=== PATIENT | female | born 1975 | race Caucasian/White ===

== ENCOUNTER 2019-05-01 19:05 | Emergency (ER) | payer MEDICAID ==
[2019-05-01] MEDS ORDERED: Doxycycline 100 MG Tab PO ONE (19:06)
--- NOTE | 2019-05-01 19:15 | EDM.PDOC ---
ED HPI GENERAL MEDICAL PROBLEM - General Chief Complaint: Lower Extremity Injury/Pain Stated Complaint: "My right foot hurts" Time Seen by Provider: 05/01/19 19:08 Source of Information: Reports: Patient History Limitations: Reports: No Limitations - History of Present Illness INITIAL COMMENTS - FREE TEXT/NARRATIVE: This patient is a 43 year old female that presents to the ER. Patient reports one week ago she was having right knee pain. She then reports yesterday she started having right foot pain in the great toe area. Patient reports that it hurts to walk. Patient denies injury. Patient denies n, v, d, f. She does report swelling and redness to the right foot area. Onset Date: 04/30/19 Front/Back Body Image: 1 - heat, swelling, mild redness, tender. Quality: Reports: Throbbing Severity: Moderate Improves with: Reports: None, Immobilization Worsens with: Reports: Movement Associated Symptoms: Denies: Confusion, Chest Pain, Cough, cough w sputum, Diaphoresis, Fever/Chills, Headaches, Loss of Appetite, Malaise, Nausea/Vomiting , Rash, Seizure, Shortness of Breath, Syncope, Weakness - Related Data Allergies Allergy/AdvReac Type Severity Reaction Status Date / Time grape Allergy Anaphylactic Verified 05/01/19 19:46 Shock Review of Systems - Review of Systems Review Of Systems: See Below Constitutional: Reports: No Symptoms Eyes: Reports: No Symptoms Ears: Reports: No Symptoms Nose: Reports: No Symptoms Mouth/Throat: Reports: No Symptoms Respiratory: Reports: No Symptoms Cardiovascular: Reports: No Symptoms GI/Abdominal: Reports: No Symptoms Genitourinary: Reports: No Symptoms Musculoskeletal: Reports: Leg Pain (left lower, with left knee pain. ), Foot Pain (left) Skin: Reports: No Symptoms Neurological: Reports: No Symptoms Psychiatric: Reports: No Symptoms ED EXAM, GENERAL - Physical Exam Exam: See Below Exam Limited By: No Limitations General Appearance: Alert, WD/WN, No Apparent Distress Eye Exam: Bilateral Eye: Normal Inspection, PERRL Ears: Normal External Exam, Normal Canal, Hearing Grossly Normal, Normal TMs Ear Exam: Bilateral Ear: Auricle Normal, Canal Normal, TM normal Nose: Normal Inspection, Normal Mucosa, No Blood Throat/Mouth: Normal Inspection, Normal Lips, Normal Teeth, Normal Gums, Normal Oropharynx, Normal Voice, No Airway Compromise Head: Atraumatic, Normocephalic Neck: Normal Inspection, Supple, Non-Tender, Full Range of Motion Respiratory/Chest: No Respiratory Distress, Lungs Clear, Normal Breath Sounds, No Accessory Muscle Use Cardiovascular: Normal Peripheral Pulses, Regular Rate, Rhythm, No Edema, No Gallop, No JVD, No Murmur, No Rub Peripheral Pulses: 2+: Radial (L), Radial (R), Posterior Tibial (L), Posterior Tibial (R), Dorsalis Pedis (L), Dorsalis Pedis (R) (Female) Exam: Deferred Rectal (Female) Exam: Deferred Back Exam: Normal Inspection, Full Range of Motion Extremities: No Pedal Edema, Joint Swelling (left greater toe), Limited Range of Motion (right greater toe due to swelling and pain), Redness (redness, heat, swelling, tenderness to the left distal metatarsal 5th joint at greater toe. Possibly consistent with gouty arthritis. ) Neurological: Alert, Oriented Psychiatric: Normal Affect, Normal Mood Skin Exam: Warm, Dry, Intact, Normal Color, No Rash Lymphatic: No Adenopathy Course - Vital Signs Last Recorded V/S: Last Vital Signs Temp 98.5 F 05/01/19 19:22 Pulse 96 05/01/19 19:22 Resp 20 05/01/19 19:22 BP 141/75 H 05/01/19 19:22 Pulse Ox 99 05/01/19 19:22 - Orders/Labs/Meds Orders: Active Orders 24 hr Category Date Time Status Foot Comp Min 3V Rt [CR] Stat Exams 05/01/19 19:08 Taken Labs: Laboratory Tests 05/01/19 05/01/19 Range/Units 19:08 19:08 WBC 11.9 H (5.0-10.0) 10^3/uL RBC 4.64 (4.00-5.50) 10^6/uL Hgb 13.2 (12.0-16.0) g/dL Hct 40.4 (37.0-47.0) % MCV 87.1 (82.0-94.0) fL MCH 28.4 (27.0-32.0) pg MCHC 32.7 L (33.0-38.0) g/dL RDW Coeff of Jaimie 13.7 (11.0-15.0) % Plt Count 332 (150-400) 10^3/uL Neut % (Auto) 75.5 (35-85) % Lymph % (Auto) 14.0 (10-55) % [place] % (Auto) 8.0 (0-16) % Eos % (Auto) 2.2 (0-5) % Baso % (Auto) 0.3 (0-3) % Neut # (Auto) 8.99 H (1.80-7.00) 10^3/uL Lymph # (Auto) 1.67 (1.00-4.80) 10^3/uL [place] # (Auto) 0.95 H (0.00-0.80) 10^3/uL Eos # (Auto) 0.26 (0.00-0.45) 10^3/uL Baso # (Auto) 0.03 10^3/uL ESR 16 (0-20) mm/hr Sodium 142 (136-145) mEq/L Potassium 4.1 (3.5-5.0) mEq/L Chloride 105 (98-106) mEq/L Carbon Dioxide 27 (21-32) mmol/L BUN 26 H (7-18) mg/dL Creatinine 0.8 (0.6-1.0) mg/dL Est Cr Clr Drug Dosing TNP Estimated GFR (MDRD) > 60 (>=60) mL/min Glucose 110 H (75-99) mg/dL Uric Acid 4.4 (2.6-6.0) mg/dL Calcium 8.8 (8.4-10.1) mg/dL C-Reactive Protein 2.1 H (0.2-0.8) mg/dL - Radiology Interpretation Free Text/Narrative:: Right foot: No fracture, no dislocation. Soft tissue swelling present. Departure - Departure Time of Disposition: 19:47 Disposition: Home, Self-Care 01 Condition: Fair Clinical Impression: Gouty arthritis of right foot - Discharge Information *PRESCRIPTION DRUG MONITORING PROGRAM REVIEWED*: Not Applicable *COPY OF PRESCRIPTION DRUG MONITORING REPORT IN PATIENT YUDITH: Not Applicable Instructions: Low-Purine Eating Plan, Gout, [id number] Forms: ED Department Discharge Additional Instructions: Followup with your primary care provider Return to the ER for worsening of condition or any emergent concerns such as fever, vomiting, or other concerns Doxycycline 100mg 1 pill twice a day for 10 days #given 3 in ER for take home # 17 no refill Indomethacin 50mg 1 pill three times a day as needed for pain #30 no refill: Stop taking if bleeding in stool occurs Crutches as needed - My Orders Last 24 Hours: My Active Orders 05/01/19 19:08 Foot Comp Min 3V Rt [CR] Stat - Assessment/Plan Last 24 Hours: My Active Orders 05/01/19 19:08 Foot Comp Min 3V Rt [CR] Stat
[2019-05-01 19:27] LABS: CHLORIDE,CL 105 mEq/L (98-106); SODIUM,NA 142 mEq/L (136-145)
[2019-05-01] MEDS ORDERED: Take Home: Doxycycline 100 MG Tab, 4 Tab Pack PO ONE (19:52)
[2019-05-01] MEDS ORDERED: Indomethacin 25 MG Cap PO ONE ×2 (19:52→19:54)
== END 2019-05-01 20:35 | disposition home or self-care (01) ==
LOC: CC.ED 19:05
DX: M10.071 Idiopathic gout, right ankle and foot (principal); Z91.018 Allergy to other foods
CPT/HCPCS: 36415; 73630; 80048; 84550; 85025; 85651; 86140; 99283; A9270

== ENCOUNTER 2019-09-14 00:33 | Emergency (ER) | payer BC ==
[2019-09-14 01:15] LABS: CHLORIDE,CL 101 mEq/L (98-106); SODIUM,NA 137 mEq/L (136-145)
--- NOTE | 2019-09-14 01:31 | EDM.PDOC ---
ED HPI GENERAL MEDICAL PROBLEM - General Chief Complaint: General Stated Complaint: "coughing and body aches" Time Seen by Provider: 09/14/19 01:12 Source of Information: Reports: Patient History Limitations: Reports: No Limitations - History of Present Illness INITIAL COMMENTS - FREE TEXT/NARRATIVE: aTra is a 43 year old female who presents to the ED with c/o fever, nausea, vomiting, cough, and body aches. She reports she has had symptoms since last week, but symptoms have worsened in the last few days. She reports she has significant body aches and malaise. She reports she has vomited 3x today. She has had productive cough. She has been alternating Tylenol and ibuprofen with last dose being at 9 pm. 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 Was seen 09/10/2019 and started on prednisone. She denies any recent travel or contact with anyone who travelled outside of [place]. Onset Date: 09/06/19 Duration: Getting Worse Location: Reports: Generalized Quality: Reports: Ache Severity: Moderate Improves with: Reports: Medication Associated Symptoms: Reports: Chest Pain (burning), Cough, cough w sputum, Fever /Chills, Headaches, Loss of Appetite, Malaise, Nausea/Vomiting, Shortness of Breath, Weakness. Denies: Confusion, Diaphoresis, Rash, Seizure, Syncope Treatments [employer]LE [employer]CH[employer]: Reports: Acetaminophen, NSAIDS Back Pain Score (Numeric/FACES): 6 - Related Data Allergies Allergy/AdvReac Type Severity Reaction Status Date / Time grape Allergy Anaphylactic Verified 09/14/19 00:40 Shock Home Meds: Home Meds EPINEPHrine [Epipen] 0.3 mg INJECT ONETIME PRN 05/01/19 [History] PARoxetine [Paxil] 20 mg PO DAILY 05/01/19 [History] Prazosin HCl [Prazosin] 1 mg PO DAILY 05/01/19 [History] Azithromycin 250 mg PO DAILY #6 tablet 09/14/19 [Rx] Past Medical History HEENT History: Reports: None Respiratory History: Reports: None Gastrointestinal History: Reports: None Genitourinary History: Reports: None Other Musculoskeletal History: Left elbow surgery Psychiatric History: Reports: Depression, PTSD - Past Surgical History Female Surgical History: Reports: Hysterectomy, Tubal Ligation Social & Family History - Tobacco Use Smoking Status *Q: Never Smoker Second Hand Smoke Exposure: No - Recreational Drug Use Recreational Drug Use: No ED ROS GENERAL - Review of Systems Review Of Systems: See Below Constitutional: Reports: Fever, Chills, Malaise, Weakness, Fatigue, Decreased Appetite HEENT: Reports: Rhinitis, Throat Pain. Denies: Vision Change Respiratory: Reports: Wheezing, Cough, Sputum. Denies: Shortness of Breath Cardiovascular: Reports: Chest Pain (burning), Dyspnea on Exertion. Denies: Edema, Lightheadedness Endocrine: Reports: Fatigue GI/Abdominal: Reports: Diarrhea, Decreased Appetite, Nausea, Vomiting. Denies: Abdominal Pain, Black Stool, Bloody Stool : Reports: No Symptoms Musculoskeletal: Reports: No Symptoms Skin: Reports: No Symptoms Neurological: Reports: Headache, Weakness. Denies: Confusion, Dizziness Psychiatric: Reports: No Symptoms Hematologic/Lymphatic: Reports: No Symptoms Immunologic: Reports: No Symptoms ED EXAM, GENERAL - Physical Exam Exam: See Below Exam Limited By: No Limitations General Appearance: Alert, WD/WN, No Apparent Distress, Other (acutely ill) Eye Exam: Bilateral Eye: EOMI, PERRL Ears: Normal External Exam, Normal Canal, Hearing Grossly Normal, Normal TMs Nose: Normal Mucosa, No Blood, Nasal Drainage (clear) Throat/Mouth: Normal Inspection, Normal Lips, Normal Teeth, Normal Gums, Normal Oropharynx, Normal Voice, No Airway Compromise Head: Atraumatic, Normocephalic Neck: Normal Inspection, Supple, Non-Tender, Full Range of Motion Respiratory/Chest: No Respiratory Distress, Lungs Clear, Normal Breath Sounds, No Accessory Muscle Use, Chest Non-Tender Cardiovascular: Normal Peripheral Pulses, Regular Rate, Rhythm, No Edema, No Gallop, No JVD, No Murmur, No Rub GI/Abdominal: Normal Bowel Sounds, Soft, Non-Tender, No Organomegaly, No Distention, No Abnormal Bruit, No Mass Back Exam: Normal Inspection, Full Range of Motion. No: CVA Tenderness (L), CVA Tenderness (R) Extremities: Normal Inspection, Normal Range of Motion, Non-Tender, Normal Capillary Refill, No Pedal Edema Neurological: Alert, Oriented, CN II-XII Intact, Normal Cognition, Normal Gait, Normal Reflexes, No Motor/Sensory Deficits Psychiatric: Normal Affect, Normal Mood Skin Exam: Warm, Dry, Intact, Normal Color, No Rash Lymphatic: No Adenopathy Course - Vital Signs Last Recorded V/S: Last Vital Signs Temp 101.9 F H 09/14/19 01:49 Pulse 95 09/14/19 00:53 Resp 20 09/14/19 00:53 BP 124/71 09/14/19 00:53 Pulse Ox 97 09/14/19 00:53 - Orders/Labs/Meds Labs: Laboratory Tests 09/14/19 09/14/19 09/14/19 Range/Units 01:02 01:02 01:02 WBC 13.8 H (5.0-10.0) 10^3/uL RBC 4.85 (4.00-5.50) 10^6/uL Hgb 13.4 (12.0-16.0) g/dL Hct 41.2 (37.0-47.0) % MCV 84.9 (82.0-94.0) fL MCH 27.6 (27.0-32.0) pg MCHC 32.5 L (33.0-38.0) g/dL RDW Coeff of Jaimie 13.4 (11.0-15.0) % Plt Count 300 (150-400) 10^3/uL Neut % (Auto) 86.4 H (35-85) % Lymph % (Auto) 6.0 L (10-55) % [place] % (Auto) 7.5 (0-16) % Eos % (Auto) 0.1 (0-5) % Baso % (Auto) 0 (0-3) % Neut # (Auto) 11.90 H (1.80-7.00) 10^3/uL Lymph # (Auto) 0.83 L (1.00-4.80) 10^3/uL [place] # (Auto) 1.04 H (0.00-0.80) 10^3/uL Eos # (Auto) 0.01 (0.00-0.45) 10^3/uL Baso # (Auto) 0.00 10^3/uL Sodium 137 (136-145) mEq/L Potassium 3.3 L (3.5-5.0) mEq/L Chloride 101 (98-106) mEq/L Carbon Dioxide 28 (21-32) mmol/L BUN 16 (7-18) mg/dL Creatinine 0.8 (0.6-1.0) mg/dL Est Cr Clr Drug Dosing 69.13 mL/min Estimated GFR (MDRD) > 60 (>=60) mL/min Glucose 114 H (75-99) mg/dL Calcium 8.5 (8.4-10.1) mg/dL C-Reactive Protein 14.6 H (0.2-0.8) mg/dL Urine Color Yellow (YELLOW) Urine Appearance Clear (CLEAR) Urine pH 7.0 (4.5-8.0) Ur Specific [place] 1.025 H (1.003-1.020) Urine Protein 100 H (NEGATIVE) mg/dL Urine Glucose (UA) Negative (NEGATIVE) mg/dL Urine Ketones Negative (NEGATIVE) mg/dL Urine Occult Blood Trace-lysed H (NEGATIVE) Urine Nitrite Negative (NEGATIVE) Urine Bilirubin Negative (NEGATIVE) Urine Urobilinogen 0.2 (0.2-1.0) EU/dL Ur Leukocyte Esterase Negative (NEGATIVE) Meds: Medications Discontinued Medications Generic Name Dose Route Start Last Admin Trade Name Freq PRN Reason Stop Dose Admin Ceftriaxone Sodium 1 gm 09/14/19 01:27 09/14/19 01:47 Rocephin IVPUSH 09/14/19 01:28 1 gm ONETIME ONE Administration Lactated Ringer's 1,000 mls @ 999 mls/hr 09/14/19 01:26 09/14/19 01:45 Ringers, Lactated IV 09/14/19 02:26 999 mls/hr .BOLUS ONE Administration Ibuprofen 600 mg 09/14/19 01:27 09/14/19 01:49 Motrin PO 09/14/19 01:28 600 mg ONETIME ONE Administration Ondansetron HCl 4 mg 09/14/19 01:30 09/14/19 01:46 Zofran IVPUSH 4 mg STAT CARSON Administration Departure - Departure Time of Disposition: 02:45 Disposition: Home, Self-Care 01 Condition: Fair Clinical Impression: Pneumonia - Discharge Information *PRESCRIPTION DRUG MONITORING PROGRAM REVIEWED*: Not Applicable *COPY OF PRESCRIPTION DRUG MONITORING REPORT IN PATIENT YUDITH: Not Applicable Prescriptions: Azithromycin 250 mg PO DAILY #6 tablet Instructions: Cough, Adult, [id number], Community-Acquired Pneumonia, Adult, [id number] Referrals: PCP,None [Primary Care Provider] - Forms: ED Department Discharge Additional Instructions: - Rest and push fluids - Alternate Tylenol 1000 mg and ibuprofen 600 mg every 3-4 hours as needed - Start Azithromycin as directed. Can be picked up at [facility] - No work until at least 09/20/2019. Recommend follow up in clinic for recheck in 2 days, 09/16/2019 - Return to ED for any emergent needs Sepsis Event Note - Evaluation Sepsis Screening Result: No Definite Risk - Focused Exam Date Exam was Performed: 09/14/19 Time Exam was Performed: 16:49 - Assessment/Plan Assessment:: Pneumonia Plan: Patient's CRP and WBC elevated. Influenza screen was negative, however I do still feel she likely has had influenza, just screened later in disease process. Patient was given 1 L IVF bolus and 1 G rocephin in ED. SHe was also given 600 mg ibuprofen. Temperature did improve. patient reported she was feeling better after IVF. She was discharged home in satisfactory condition. She is advised to refrain from work the remainder of the week. She is advised to follow up in 2-3 days for recheck, sooner if symptoms worsen.
[2019-09-14] MEDS: Lactated Ringers 1,000 ML IV ONE (01:45)
[2019-09-14] MEDS: Ondansetron 4 MG/2 ML SDV IVPUSH SCH (01:46)
[2019-09-14] MEDS: cefTRIAXone 1 GM Vial IVPUSH ONE (01:47)
[2019-09-14] MEDS: Ibuprofen 200 MG Tab PO ONE (01:49)
== END 2019-09-14 02:48 | disposition home or self-care (01) ==
LOC: CC.ED 00:33
DX: J18.9 Pneumonia, unspecified organism (principal); F32.9 Major depressive disorder, single episode, unspecified; F43.10 Post-traumatic stress disorder, unspecified; Z91.018 Allergy to other foods; Z79.899 Other long term (current) drug therapy
CPT/HCPCS: 36415; 80048; 81003; 85025; 86140; 87804; 96361; 96374; 96375; 99283-25; A9270-GY; J0696; J2405; J7120